=== PATIENT | male | born 1960 | race Caucasian/White ===

== ENCOUNTER 2018-09-21 10:17 | Emergency (ER) | payer MEDICARE ==
[~2018-09-21] VITALS: Ht 175.3 cm; Wt 65.9 kg
[2018-09-21 10:19] VITALS: Ht 175.3 cm; Wt 65.9 kg
[2018-09-21] MEDS ORDERED: NORVASC5 MG PO (10:22)
[2018-09-21] MEDS ORDERED: BETAPACE 80 MG80 MG PO (10:22)
[2018-09-21] MEDS ORDERED: COUMADIN7.5 MG PO (10:23)
[2018-09-21] MEDS ORDERED: NAPROSYN500 MG PO (12:48)
[2018-09-21 13:01] VITALS: BP 123/78
== END 2018-09-21 12:55 | disposition home or self-care (01) ==
LOC: D.ER 10:17
DX: M54.2 Cervicalgia (principal)